=== PATIENT | female | born 1945 | race Caucasian/White ===

== ENCOUNTER 2020-05-25 08:39 | Outpatient (REF) | payer BC, SELFPAY ==
[2020-05-25 11:18] LABS: Hematocrit 44.8 % (37-47); Hemoglobin 15.3 g/dl (12.0-16.0); Mean Corpuscular HGB Conc 34.2 g/dl (31.0-35.0); Mean Corpuscular Hemoglobin 32.6 pg (27.0-33.0); Mean Corpuscular Volume 95.3 fL (80-98); Mean Platelet Volume 10.5 fL (9.4-12.3); Platelet Count 251 X10*3/uL (160-400); Red Cell Distribution Width 11.9 % (11.0-16.0); White Blood Count 7.9 X10*3/uL (4.8-10.8)
[2020-05-25 11:25] LABS: Estimated Average Glucose 131 mg/dL; Hemoglobin A1c % 6.2 %
[2020-05-25 11:26] LABS: Glucose Urine UA NEG (NEG); Leukocyte Esterase Urine NEG (NEG); Nitrite Urine NEG (NEG); PH 5.5 (5.0-8.0); Specific Gravity - Urine 1.015 (1.005-1.025); Urine Blood NEG (NEG); Urine Ketones NEG (NEG); Urine Protein NEG (NEG-TRACE)
[2020-05-25 11:29] LABS: Appearance Urine CLEAR; Color Urine YELLOW
[2020-05-25 11:40] LABS: Cholesterol 154 mg/dL; HDL Cholesterol 61 mg/dL; LDL Cholesterol Calculated 77 mg/dl; Triglycerides 80 mg/dL
[2020-05-25 12:07] LABS: Creatinine Urine 55.06 mg/dL; Microalbum/Creatinine Ratio Ur 150.7 ug/mg cr
== END 2020-05-25 08:40 | disposition home or self-care (01) ==
LOC: HO.HMGCLDS 08:39
PROVIDERS: PCP Internal Medicine; Visit Provider Internal Medicine
DX: E11.69 Type 2 diabetes mellitus with other specified complication (principal); E78.5 Hyperlipidemia, unspecified
CPT/HCPCS: 36415; 80061; 81003; 82043; 83036; 85027

== ENCOUNTER 2020-07-13 11:02 | Emergency (ER) | payer BC, SELFPAY ==
[2020-07-13 11:22] VITALS: BP 159/43; PULSE 61; RESP 16; TEMP 36.7; O2SAT 97; BMI 23.3
--- NOTE | 2020-07-13 13:16 | ED.SKABFB ---
HPI - Skin/Abscess/Foreign Bdy General Chief complaint: Skin/Abscess/Foreign Body Stated complaint: abd pain Time Seen by Provider: 07/13/20 13:22 Source: patient Mode of arrival: ambulatory Limitations: no limitations History of Present Illness HPI narrative: Patient presents to ED for painful redness on left size of abdomen small mass. Patient states history of cellulitis/abscess on abdomen that usually treated with antibiotics. Patient states she had another episode was started for the past 4 days. Patient states no fever or chills. Patient denies any recent trauma to the abdomen. Related Data Home Medications Medication Instructions Recorded Confirmed blood sugar diagnostic #10 ea 12/12/19 05/29/20 cephalexin 500 mg capsule 500 mg PO TID 12/12/19 05/29/20 doxycycline hyclate 100 mg capsule 100 mg PO BID 12/12/19 05/29/20 ibuprofen 400 mg tablet 400 mg PO TID 12/12/19 05/29/20 sulfamethoxazole 800 1 tab PO BID 12/12/19 05/29/20 mg-trimethoprim 160 mg tablet Previous Rx's Medication Instructions Recorded simvastatin 20 mg tablet 20 mg PO BEDTIME #90 tab 06/15/20 metformin 500 mg tablet 500 mg PO BID #240 tab 07/08/20 cephalexin 500 mg PO QID 7 Days #28 tab 07/13/20 doxycycline hyclate 100 mg PO BID 10 Days #20 tab 07/13/20 Allergies Allergy/AdvReac Type Severity Reaction Status Date / Time No Known Allergies Allergy Unverified 11/28/19 14:35 [No Known Allergies*] Review of Systems Review of Systems: Yes all other systems are reviewed and are negative Constitutional: Constitutional: Reports as per HPI and Reports no additional constitutional complaints Eyes: Eyes: Reports as per HPI and Reports no additional eye complaints ENT: Reports system reviewed and no additional complaints, except as documented and Reports as per HPI Cardiovascular: Cardiovascular: Reports as per HPI and Reports no additional cardiovascular complaints Respiratory: Respiratory: Reports as per HPI and Reports no additional respiratory complaints Gastrointestinal: Gastrointestinal: Reports as per HPI and Reports no additional gastrointestinal complaints Comments: Abdominal cellulitis/abscess Genitourinary: Genitourinary: Reports no additional female genitourinary complaints and Reports as per HPI Musculoskeletal: Musculoskeletal: Reports no additional musculoskeletal complaints and Reports as per HPI Neurologic: Reports system reviewed and no additional complaints, except as documented and Reports as per HPI Psychiatric: Psychiatric: Reports no additional psychiatric complaints and Reports as per HPI [facility] Past Medical History Medical History (Updated 07/13/20 @ 13:23 by DARLIN Gallego) Hyperlipidemia Type 2 diabetes mellitus Surgical History (Updated 07/13/20 @ 11:27 by Lissett Dillard) History of bilateral hip replacements History of left knee replacement Family History Family History (Updated 05/29/20 @ 13:18 by Nieves Napier [facility]) Father CVD (cardiovascular disease) Mother CVD (cardiovascular disease) Social History Social History Advance Directives: No Advance Directives Information Provided: No Physical Exam Vital Signs: Vital Signs: Last Vital Signs Temp 98.1 F 07/13/20 11:22 Pulse 61 07/13/20 11:22 Resp 16 07/13/20 11:22 BP 159/43 H 07/13/20 11:22 Pulse Ox 97 07/13/20 11:22 Body Mass Index 23.3 Const: General: cooperative, healthy appearing, comfortable, no acute distress, well developed, alert, awake and Physically active Orientation/consciousness: patient oriented x3 HENMT: Head: Yes normal to inspection, Yes No palpable skull fracture present, Yes normocephalic, Yes atraumatic and No abrasion Eyes: General: appearance normal, both eyes and all related structures Neck: Neck: Yes normal visual inspection, Yes full ROM, Yes no lymphadenopathy, Yes no meningeal signs, Yes trachea midline, Yes supple and No tender Chest: Chest palpation & inspection: normal inspection of the chest and normal palpation of entire chest wall Resp: Effort & Inspection: normal respiratory effort and able to speak in complete sentences Auscultation: clear to auscultation bilaterally Cardio: Jugular venous distension: no JVD Heart sounds: S1 normal heart sound present and S2 normal heart sound present GI: Other: Small area of redness that is warm and tender left side of abdomen that is negative for fluctuance with small opening that has slight yellow drainage. Very superficial. Inspection: Yes normal to inspection Palpation (GI): Tenderness to palpation present (GI) (Small area of redness that is warm and tender to palpation. ), Guarding due to palpation present (GI) and Rigid due to palpation : General: No CVA tenderness and Yes no CVA tenderness Back/Spine/Pelvis: Back: no CVA tenderness, No CVA tenderness and No back tenderness Skin: Other: Abdominal cellulitis/early abscess Neuro: General: patient oriented x3, no meningeal signs and CN's II-XI intact bilaterally Cranial nerves: Yes CN's II-XII intact bilaterally Extrem: General: Yes normal to inspection and Yes full ROM Psych: Appearance: grossly normal, well kempt and not disheveled Course Course Course Narrative: History and physical exam indicate cellulitis versus early abscess. Very superficial not concerned for deep abscess. mild Drainage is yellow. Drainage is not brown, stool color, or foul odor to indicate fistula/bowel content. Reevaluation(s) Reevaluation #1: Bedside ultrasound of area of redness negative for any pus collection. Will treat with Keflex and doxycycline antibiotics. Area of redness circled patient told to inform return to ED immediately if redness spreads beyond marker. Patient recommended on warm compress 4 times a day on area of redness for 15 minutes. Patient will follow-up with her PCP. MDM - Skin/Abscess/Foreign Bdy MDM Narrative Medical decision making narrative: Cellulitis/early abscess Discharge Plan Discharge Clinical Impression: Cellulitis Patient Disposition: Home, Self-Care Instructions: Cellulitis (ED), Abscess (ED) Additional Instructions: Return to the ED immediately increased redness, worsening pain, fever, chills, profuse discharge, weakness, dizziness, or any other concerning symptoms. If redness spreads beyond marker come to the ED immediately. Recommend warm compress 4 times a day for 15 minutes on area of redness. Return to the ED in 3-4 days for re-evaluation. Prescriptions: New cephalexin 500 mg tablet 500 mg PO QID 7 Days Qty: 28 RF: 0 doxycycline hyclate 100 mg tablet 100 mg PO BID 10 Days Qty: 20 RF: 0 No Action simvastatin 20 mg tablet 20 mg PO BEDTIME Qty: 90 RF: 3 metformin 500 mg tablet 500 mg PO BID Qty: 240 RF: 0 cephalexin 500 mg capsule 500 mg PO TID RF: 0 doxycycline hyclate 100 mg capsule 100 mg PO BID RF: 0 (DME) OneTouch Ultra Blue Test Strip Strip See Rx Instructions ea Not Applicable DAILY Qty: 10 RF: 0 ibuprofen 400 mg tablet 400 mg PO TID RF: 0 sulfamethoxazole-trimethoprim 800-160 mg tablet 1 tab PO BID RF: 0 Referrals: Jada Velasco MD [Primary Care Provider] - 2 days (Abdominal cellulitis/early abscess. No incision and drainage indicated. Discharged with Keflex and doxycycline) Interventions: ED Discharge Assessment Last Done: 07/13/20 13:44 Discharge Date/Time: 07/13/20 13:46 Print Language: [place] Citizen
== END 2020-07-13 13:46 | disposition home or self-care (01) ==
PROVIDERS: Emergency Provider Emergency Medicine; PCP Internal Medicine
DX: L03.311 Cellulitis of abdominal wall (principal); R10.9 Unspecified abdominal pain; E11.9 Type 2 diabetes mellitus without complications; E78.5 Hyperlipidemia, unspecified
CPT/HCPCS: 99283

== ENCOUNTER 2020-12-07 08:04 | Outpatient (REF) | payer BC, SELFPAY ==
[2020-12-07 11:30] LABS: Hematocrit 45.5 % (37-47); Hemoglobin 15.3 g/dl (12.0-16.0); Mean Corpuscular HGB Conc 33.6 g/dl (31.0-35.0); Mean Corpuscular Hemoglobin 32.8 pg (27.0-33.0); Mean Corpuscular Volume 97.4 fL (80-98); Mean Platelet Volume 10.7 fL (9.4-12.3); Platelet Count 276 X10*3/uL (160-400); Red Blood Count 4.67 X10*6/uL (4.20-5.50); Red Cell Distribution Width 12.4 % (11.0-16.0); White Blood Count 7.3 X10*3/uL (4.8-10.8)
[2020-12-07 11:42] LABS: Estimated Average Glucose 123 mg/dL; Hemoglobin A1C 152.2509 umol/L; Hemoglobin A1c % 5.9 %
[2020-12-07 12:03] LABS: Alanine Aminotransferase 18 U/L (0-31); Albumin Level 4.4 g/dL (3.5-5.0); Alkaline Phosphatase 56 U/L (39-117); Anion Gap 15 (12-20); Aspartate Amino Transferase 17 U/L (5-31); Bilirubin Total 0.8 mg/dL (0.0-1.0); Blood Urea Nitrogen 11 mg/dL (9-16); Calcium 9.7 mg/dL (8.4-10.2); Carbon Dioxide 25 mmol/L (22-29); Chloride 102 mmol/L (96-108); Cholesterol 157 mg/dL; Estimated Glomerular Filt Rate > 60; Glucose Fasting 144 mg/dL (60-99); HDL Cholesterol 67 mg/dL; LDL Cholesterol Calculated 78 mg/dl; Potassium 4.9 mmol/L (3.3-5.1); Sodium 137 mmol/L (135-145); Total Protein 7.1 g/dL (6.5-8.0); Triglycerides 64 mg/dL
[2020-12-07 12:06] LABS: Microalbum/Creatinine Ratio Ur 216.8 ug/mg cr
== END 2020-12-07 08:05 | disposition home or self-care (01) ==
LOC: HO.HMGCLDS 08:04
PROVIDERS: PCP Internal Medicine; Visit Provider Internal Medicine
DX: E11.9 Type 2 diabetes mellitus without complications (principal); E78.5 Hyperlipidemia, unspecified
CPT/HCPCS: 36415; 80053; 80061; 82043; 83036; 85027

== ENCOUNTER 2021-06-14 07:40 | Outpatient (REF) | payer BC, SELFPAY ==
[2021-06-14 12:37] LABS: Alanine Aminotransferase 20 U/L (0-31); Albumin Level 4.5 g/dL (3.5-5.0); Alkaline Phosphatase 66 U/L (39-117); Anion Gap 13 (12-20); Aspartate Amino Transferase 18 U/L (5-31); Bilirubin Total 0.6 mg/dL (0.0-1.0); Blood Urea Nitrogen 12 mg/dL (9-16); Calcium 10.3 mg/dL (8.4-10.2); Carbon Dioxide 28 mmol/L (22-29); Chloride 101 mmol/L (96-108); Cholesterol 187 mg/dL; Estimated Glomerular Filt Rate > 60; Glucose Fasting 156 mg/dL (60-99); HDL Cholesterol 81 mg/dL; LDL Cholesterol Calculated 92 mg/dl; Potassium 4.9 mmol/L (3.3-5.1); Sodium 137 mmol/L (135-145); Total Protein 7.5 g/dL (6.5-8.0); Triglycerides 71 mg/dL
== END 2021-06-14 07:41 | disposition home or self-care (01) ==
LOC: HO.HMGCLDS 07:40
PROVIDERS: Visit Provider Internal Medicine
DX: E11.9 Type 2 diabetes mellitus without complications (principal); E78.5 Hyperlipidemia, unspecified
CPT/HCPCS: 36415; 80053; 80061

== ENCOUNTER 2021-07-01 14:28 | Outpatient (REF) | payer BC, SELFPAY ==
--- NOTE | ~2021-07-01 | US_ITS ---
EXAMINATION: US PELVIS LIMITED (BLADDER) CLINICAL INFORMATION: Retention of urine, unspecified. COMPARISON: None TECHNIQUE: Real-time imaging of the bladder. FINDINGS: BLADDER: Well distended and normal. Bilateral ureteral jets are demonstrated. Prevoid bladder volume is 190 mL. There is no bladder wall thickening. Postvoid bladder volume is 179 mL. Patient is unable to void completely. US/US bladder IMPRESSION: Significant postvoid residual bladder volume. Normal bilateral ureteral jets. No bladder wall thickening.
== END 2021-07-01 14:29 | disposition home or self-care (01) ==
LOC: HO.HMGCX 14:28
PROVIDERS: Visit Provider Internal Medicine
DX: R33.9 Retention of urine, unspecified (principal)
CPT/HCPCS: 76857

== ENCOUNTER 2021-11-08 07:55 | Outpatient (REF) | payer BC, SELFPAY ==
[2021-11-08 11:26] LABS: Appearance Urine Clear; Color Urine Yellow; Glucose Urine UA Negative (Negative); Leukocyte Esterase Urine Negative (Negative); Nitrite Urine Negative (Negative); Urine Blood Negative (Negative); Urine Ketones Negative (Negative); Urine Protein Negative (Neg-Trace)
[2021-11-08 12:08] LABS: Alanine Aminotransferase 12 U/L (0-31); Albumin Level 4.4 g/dL (3.5-5.0); Alkaline Phosphatase 73 U/L (39-117); Anion Gap 16 (12-20); Aspartate Amino Transferase 16 U/L (5-31); Bilirubin Total 0.7 mg/dL (0.0-1.0); Blood Urea Nitrogen 18 mg/dL (9-16); Calcium 9.9 mg/dL (8.4-10.2); Carbon Dioxide 27 mmol/L (22-29); Chloride 101 mmol/L (96-108); Cholesterol 173 mg/dL; Estimated Glomerular Filt Rate > 60; Glucose Fasting 145 mg/dL (60-99); HDL Cholesterol 71 mg/dL; LDL Cholesterol Calculated 90 mg/dl; Potassium 5.2 mmol/L (3.3-5.1); Sodium 139 mmol/L (135-145); Total Protein 7.3 g/dL (6.5-8.0); Triglycerides 64 mg/dL
[2021-11-08 12:09] LABS: Creatinine Urine 29.13 mg/dL; Microalbum/Creatinine Ratio Ur 181.9 ug/mg cr
[2021-11-08 12:16] LABS: TSH reflex Free T4 1.52 uIU/mL (0.32-4.0); TSH reflex Free T4 (Prenatal) 1.52 uIU/mL (0.32-4.0)
[2021-11-08 12:24] LABS: Estimated Average Glucose 126 mg/dL
== END 2021-11-08 07:56 | disposition home or self-care (01) ==
LOC: HO.HMGCLDS 07:55
PROVIDERS: PCP Internal Medicine; Visit Provider Internal Medicine
DX: E78.5 Hyperlipidemia, unspecified (principal); R33.9 Retention of urine, unspecified; E11.9 Type 2 diabetes mellitus without complications
CPT/HCPCS: 36415; 80053; 80061; 81003; 82043; 83036; 84443

== ENCOUNTER 2021-11-12 13:04 | Outpatient (REF) | payer BC, SELFPAY ==
--- NOTE | ~2021-11-12 | US_ITS ---
EXAMINATION: US PELVIS LIMITED (BLADDER) CLINICAL INFORMATION: Urinary retention. COMPARISON: None TECHNIQUE: Real-time imaging of the bladder. FINDINGS: BLADDER: Only moderately distended and normal. Bilateral ureteral jets are demonstrated. Prevoid bladder volume is 184 mL. Postvoid bladder volume is 87 mL. US/US bladder IMPRESSION: Moderate post void residual. Bladder wall slightly thickened. No discrete calcifications or masses..
== END 2021-11-12 13:05 | disposition home or self-care (01) ==
LOC: HO.US 13:04
PROVIDERS: PCP Internal Medicine; Visit Provider Internal Medicine
DX: R33.9 Retention of urine, unspecified (principal)
CPT/HCPCS: 76857

== ENCOUNTER 2022-01-24 12:32 | Outpatient (REF) | payer BC, SELFPAY | END 2022-01-24 12:33 | disposition home or self-care (01) | LOC: HO.SH 12:32 | PROVIDERS: Visit Provider Internal Medicine | DX: Z01.118 Encounter for examination of ears and hearing with other abnormal findings (principal); H90.3 Sensorineural hearing loss, bilateral | CPT/HCPCS: 92557 ==

== ENCOUNTER 2022-02-14 14:26 | Outpatient (REF) | payer BC, SELFPAY ==
--- NOTE | 2022-02-14 16:09 | MHC.AU.MED ---
Medical Clearance for Hearing Instrumentation Date: 02/14/22 Patient Name: Kathe Jaramillo Date of : 1945 Primary Care Provider: Jada Velasco MD We have seen your patient on 01/24/22 and have determined that they are a candidate for amplification (See accompanying report). Specifically, they would benefit from: Hearing aid use in both ears There is a statute that addresses Medical Evaluation Requirements prior to fitting a patient with a hearing aid. According to [place] statute 265 CMR:6.03(1), (a) General. Except as provided in 265 CMR 6.03(1)(b), a senior network engineer shall not sell a hearing aid unless the prospective user has presented to the senior network engineer a written statement signed by a licensed physician that states that the patient's hearing loss has been medically evaluated and the patient may be considered a candidate for a hearing aid. The medical evaluation must have taken place within the preceding six months. Please note: Due to the [place] Statute referenced above, we cannot accept a signature other than that of a licensed physician. BEREAVEMENT COORDINATOR and PA signatures cannot be accepted. I am in agreement with the above recommendation. There is no medical contraindication for hearing instrumentation. Physician Signature Date Physician Name (Printed)
--- NOTE | 2022-02-14 16:40 | MHC.AU.HA1 ---
Hearing Aid Evaluation Date of Visit: 02/14/22 Historical Information: Description of Hearing: Within normal sloping to moderately-severe sensorineural hearing loss, bilaterally. Summary: Kathe reported that she is ready to pursue amplification. She is noticing significant difficulty hearing the television. When she is with a group of people, she is missing out on the conversation because she cannot understand what is being said. She continually needs to ask for repetition and it is beginning to affect her overall quality of life. Hearing Aid Prescription: Based on the individual?s shared listening needs, communication environments, dexterity, desire for connectivity, and personal preferences, the following prescription for amplification has been made: Right ear: Make, Model, Color: Oticon More 3 miniRITE-R Color: Silver [place] Battery Size: Rechargeable Employment Training Specialist/Slim Tube: 2/85 Type of Earmold/Dome/CShell/SlimTip: 6mm double hamilton dome Left ear: Left ear prescription to be same as Right Hearing Aid above: Make, Model, Color: Oticon More 3 miniRITE-R Color: Silver [place] Battery Size: Rechargeable Employment Training Specialist/Slim Tube: 2/85 Type of Earmold/Dome/CShell/SlimTip: 6mm double hamilton dome Plan of Care: Patient wishes to purchase hearing aids as prescribed Action Taken/Action Needed: Medical Clearance to be requested from PCP/ENT. Hearing Instrument Fitting to be scheduled when materials arrive Primary Diagnosis: H90.3 Bilateral Sensorineural Hearing Loss Signature: Provider: Dimitris Sigala, [facility]
== END 2022-02-14 14:27 | disposition home or self-care (01) ==
LOC: HO.HAP 14:26
PROVIDERS: Visit Provider Internal Medicine
DX: Z46.1 Encounter for fitting and adjustment of hearing aid (principal); H90.3 Sensorineural hearing loss, bilateral
CPT/HCPCS: 92590

== ENCOUNTER → 2022-02-21 10:00 | Outpatient (BNVA) | payer BC, SELFPAY | PROVIDERS: PCP Internal Medicine; Visit Provider Orthopaedic Surgery | DX: M65.342 Trigger finger, left ring finger (principal) | CPT/HCPCS: 20550; J1100 ==

== ENCOUNTER → 2022-03-23 13:30 | Outpatient (BNVA) | payer BC, SELFPAY | PROVIDERS: PCP Internal Medicine; Visit Provider Orthopaedic Surgery | DX: M65.342 Trigger finger, left ring finger (principal) | CPT/HCPCS: 99212 ==

== ENCOUNTER 2022-03-28 14:24 | Outpatient (REF) | payer SELFPAY | END 2022-03-28 14:25 | disposition home or self-care (01) | LOC: HO.HAP 14:24 | PROVIDERS: Visit Provider Internal Medicine | DX: Z46.1 Encounter for fitting and adjustment of hearing aid (principal); H90.3 Sensorineural hearing loss, bilateral | CPT/HCPCS: V5261; V5299 ==

== ENCOUNTER 2022-04-12 12:25 | Outpatient (REF) | payer SELFPAY | END 2022-04-12 12:26 | disposition home or self-care (01) | LOC: HO.HAP 12:25 | PROVIDERS: Visit Provider Internal Medicine | DX: Z13.89 Encounter for screening for other disorder (principal) ==

== ENCOUNTER 2022-04-21 08:56 | Day surgery (SDC) | payer BC, SELFPAY ==
[2022-04-21 09:24] VITALS: BMI 22.6
--- NOTE | 2022-04-21 10:23 | MHC.SHP ---
Pre-Procedural Eval Section A Date of Service: 04/21/22 The patient is an INPATIENT: No Changes since office visit: No Cold of Flu in the past 2 weeks, No New Medical Problems, No Changes in Medication and No Patient answered all questions The History & Physical has been completed within 30 days and I have reviewed it.: Yes Section B Chief Complaint: Trigger finger, left ring finger Allergies: Allergies Allergy/AdvReac Type Severity Reaction Status Date / Time No Known Allergies Allergy Verified 03/23/22 13:52 [No Known Allergies*] Plan I have reviewed the history and physical and performed a pertinent physical examination on my patient. No changes have occurred unless specified. Time Spent With Patient Time: Total time managing care of this patient today ____ minutes.
--- NOTE | 2022-04-21 10:23 | W.PM.OPN ---
Operative Note Operative Note Date of Service: 04/21/22 Narrative: Operative Note Preop diagnosis: 1. Left ring finger Trigger finger Postop diagnosis: 1. Left ring finger Trigger finger Procedure: 1. Left ring finger A1 jose m release Surgeon: Marleen Kim MD Anesthesia: local block using 1% lidocaine with epinephrine Findings: No locking or catching after A1 jose m release EBL: Less than 5 mL Tourniquet time: None Specimens: None Complications: None Disposition: Brought to recovery room in stable condition Plan: Follow-up for 10-14 days for wound check and suture removal Indications: The patient is 76 years old, with a left ring finger trigger finger that has been unresponsive to nonoperative management. The risks and benefits of operative treatment including but not limited to risk of damage to blood vessels, nerves, tendons, infection, persistent pain, persistent symptoms, recurrence or possible need for additional surgery were discussed with the patient and the patient wishes to proceed with surgery. Procedure: Once consent was obtained a local block was performed in the preop area using a combination of 1% lidocaine with epinephrine. The patient was then brought back to the operating suite and placed on the operative table in supine position. The left upper extremity was prepped and draped in a standard surgical fashion. Once assured that we had a good block, a 1.5 cm oblique incision was made centered over the A1 jose m of the left ring finger . The incision was made through the skin to the subcutaneous tissues using a #15 blade. Careful dissection was made down to the level of the A1 jose m using tenotomy scissors, with care being taken to protect the nearby neurovascular structures. A longitudinal incision was made in the A1 jose m 1st using a #15 blade, then using tenotomy scissors under direct visualization. The A1 jose m was noted to be thickened. Following our A1 jose m release, we no longer saw any locking or catching of the digit with flexion and extension. Once satisfied with our A1 jose m release the wound was copiously irrigated with normal saline and hemostasis was obtained with a brief period of local pressure. The skin edges were reapproximated with some 5.0 nylon suture material and a sterile dressing was applied. The patient appears to have tolerated the procedure well and with no complications. All digits were well vascularized at the conclusion of the case.
[2022-04-21 11:24] VITALS: BP 165/54; PULSE 53; RESP 18; O2SAT 94
== END 2022-04-21 11:27 | disposition home or self-care (01) ==
PROVIDERS: PCP Internal Medicine; Visit Provider Orthopaedic Surgery
PROC: (CPT 26055; principal; 2022-04-21 11:00)
DX: M65.342 Trigger finger, left ring finger (principal); E11.9 Type 2 diabetes mellitus without complications; E78.5 Hyperlipidemia, unspecified; Z79.84 Long term (current) use of oral hypoglycemic drugs; Z79.899 Other long term (current) drug therapy; F17.210 Nicotine dependence, cigarettes, uncomplicated
CPT/HCPCS: 26055; J0171

== ENCOUNTER 2022-04-29 12:24 | Outpatient (REF) | payer BC, SELFPAY | END 2022-04-29 12:25 | disposition home or self-care (01) | LOC: HO.HAP 12:24 | PROVIDERS: Visit Provider Internal Medicine | DX: Z13.89 Encounter for screening for other disorder (principal) ==

== ENCOUNTER → 2022-05-03 13:23 | Outpatient (BNVA) | payer BC, SELFPAY | PROVIDERS: PCP Internal Medicine; Visit Provider Orthopaedic Surgery | DX: Z13.89 Encounter for screening for other disorder (principal) ==

== ENCOUNTER 2022-05-09 12:53 | Outpatient (REF) | payer SELFPAY | END 2022-05-09 12:54 | disposition home or self-care (01) | LOC: HO.HAP 12:53 | PROVIDERS: Visit Provider Internal Medicine | DX: Z13.89 Encounter for screening for other disorder (principal) ==

== ENCOUNTER 2022-05-16 12:52 | Outpatient (REF) | payer SELFPAY | END 2022-05-16 12:53 | disposition home or self-care (01) | LOC: HO.HAP 12:52 | PROVIDERS: Visit Provider Internal Medicine | DX: Z13.89 Encounter for screening for other disorder (principal) ==

== ENCOUNTER 2022-05-17 07:56 | Outpatient (REF) | payer BC, SELFPAY ==
[2022-05-17 11:31] LABS: MANUAL DIFF FLAG NO
[2022-05-17 11:41] LABS: Basophils Absolute Auto 0.1 X10*3/uL (0.0-0.2); Eosinophils Absolute Auto 0.3 X10*3/uL (0.0-0.4); Eosinophils Percent Auto 4.1 % (0-4); Hematocrit 44.9 % (37.0-47.0); Hemoglobin 15.2 g/dl (12.0-16.0); Imm Gran Abs Auto 0.02 X10*3/uL (0.00-0.03); Imm Gran Pct Auto 0.2 % (0.0-0.4); Lymphocytes Absolute Auto 3.6 X10*3/uL (1.2-4.9); Mean Corpuscular HGB Conc 33.9 g/dl (31.0-35.0); Mean Corpuscular Hemoglobin 32.6 pg (27.0-33.0); Mean Corpuscular Volume 96.4 fL (80.0-98.0); Mean Platelet Volume 10.2 fL (9.4-12.3); Monocytes Absolute Auto 0.5 X10*3/uL (0.1-1.2); Monocytes Percent Auto 6.3 % (2-11); Neutrophils Absolute Auto 3.8 x10*3/uL (2.0-8.3); Neutrophils Percent Auto 45.4 % (45-73); Platelet Count 281 X10*3/uL (160-400); Red Blood Count 4.66 X10*6/uL (4.20-5.50); Red Cell Distribution Width 12.1 % (11.0-16.0); White Blood Count 8.3 X10*3/uL (4.8-10.8)
[2022-05-17 12:01] LABS: Alanine Aminotransferase 17 U/L (0-31); Albumin Level 4.3 g/dL (3.5-5.0); Alkaline Phosphatase 69 U/L (39-117); Anion Gap 13 (12-20); Aspartate Amino Transferase 18 U/L (5-31); Bilirubin Total 0.5 mg/dL (0.0-1.0); Blood Urea Nitrogen 12 mg/dL (9-16); Calcium 9.3 mg/dL (8.4-10.2); Carbon Dioxide 26 mmol/L (22-29); Chloride 102 mmol/L (96-108); Cholesterol 166 mg/dL; Estimated Glomerular Filt Rate > 60; Glucose Fasting 138 mg/dL (60-99); HDL Cholesterol 64 mg/dL; LDL Cholesterol Calculated 88 mg/dl; Potassium 4.2 mmol/L (3.3-5.1); Sodium 137 mmol/L (135-145); Total Protein 6.8 g/dL (6.5-8.0); Triglycerides 71 mg/dL
[2022-05-17 12:07] LABS: Estimated Average Glucose 143 mg/dL; Hemoglobin A1c % 6.6 %
[2022-05-17 13:33] LABS: Creatinine Urine 48.15 mg/dL; Microalbum/Creatinine Ratio Ur 176.5 ug/mg cr
== END 2022-05-17 07:57 | disposition home or self-care (01) ==
LOC: HO.HMGCLDS 07:56
PROVIDERS: PCP Internal Medicine; Visit Provider Internal Medicine
DX: E11.9 Type 2 diabetes mellitus without complications (principal); E78.5 Hyperlipidemia, unspecified
CPT/HCPCS: 36415; 80053; 80061; 82043; 83036; 85025

== ENCOUNTER 2022-08-29 12:23 | Outpatient (REF) | payer BC, SELFPAY ==
[2022-08-29 12:49] VITALS: BMI 22.3
[2022-08-29 12:51] VITALS: BP 172/82; PULSE 53; RESP 16; TEMP 36.8; O2SAT 94
== END 2022-08-29 12:24 | disposition home or self-care (01) ==
LOC: HO.MS 12:23
PROVIDERS: PCP Internal Medicine; Visit Provider Ophthalmology
PROC: (CPT 66821; principal; 2022-08-29 14:50)
DX: H26.492 Other secondary cataract, left eye (principal)
CPT/HCPCS: 66821

== ENCOUNTER 2022-11-21 07:54 | Outpatient (REF) | payer BC, SELFPAY ==
[2022-11-21 11:19] LABS: MANUAL DIFF FLAG NO
[2022-11-21 11:52] LABS: Basophils Absolute Auto 0.1 X10*3/uL (0.0-0.2); Basophils Percent Auto 1.2 % (0-2); Eosinophils Absolute Auto 0.5 X10*3/uL (0.0-0.4); Eosinophils Percent Auto 6.3 % (0-4); Hematocrit 43.5 % (37.0-47.0); Imm Gran Abs Auto 0.02 X10*3/uL (0.00-0.03); Imm Gran Pct Auto 0.2 % (0.0-0.4); Lymphocytes Absolute Auto 2.7 X10*3/uL (1.2-4.9); Lymphocytes Percent Auto 33.1 % (20-40); Mean Corpuscular HGB Conc 34.5 g/dl (31.0-35.0); Mean Corpuscular Hemoglobin 33.7 pg (27.0-33.0); Mean Corpuscular Volume 97.8 fL (80.0-98.0); Monocytes Absolute Auto 0.5 X10*3/uL (0.1-1.2); Monocytes Percent Auto 6.1 % (2-11); Neutrophils Absolute Auto 4.3 x10*3/uL (2.0-8.3); Neutrophils Percent Auto 53.1 % (45-73); Platelet Count 282 X10*3/uL (160-400); Red Blood Count 4.45 X10*6/uL (4.20-5.50); Red Cell Distribution Width 12.8 % (11.0-16.0); White Blood Count 8.2 X10*3/uL (4.8-10.8)
[2022-11-21 12:07] LABS: Estimated Average Glucose 111 mg/dL; Hemoglobin A1C 148.3837 umol/L; Hemoglobin A1c % 5.5 % (<6.0)
[2022-11-21 12:08] LABS: Alanine Aminotransferase 10 U/L (0-31); Albumin Level 4.2 g/dL (3.5-5.0); Alkaline Phosphatase 62 U/L (39-117); Anion Gap 12 (12-20); Aspartate Amino Transferase 17 U/L (5-31); Bilirubin Total 0.5 mg/dL (0.0-1.0); Blood Urea Nitrogen 14 mg/dL (9-16); Calcium 9.8 mg/dL (8.4-10.2); Carbon Dioxide 27 mmol/L (22-29); Chloride 103 mmol/L (96-108); Cholesterol 154 mg/dL (<200); Estimated Glomerular Filt Rate > 60; Glucose Fasting 129 mg/dL (60-99); HDL Cholesterol 68 mg/dL (>40); LDL Cholesterol Calculated 75 mg/dL (<100); Potassium 4.5 mmol/L (3.3-5.1); Sodium 137 mmol/L (135-145); Total Protein 7.2 g/dL (6.5-8.0); Triglycerides 58 mg/dL (<150)
[2022-11-21 12:26] LABS: Creatinine Urine 28.14 mg/dL; Microalbum/Creatinine Ratio Ur 95.9 ug/mg cr (<30)
== END 2022-11-21 07:55 | disposition home or self-care (01) ==
LOC: HO.HMGCLDS 07:54
PROVIDERS: PCP Internal Medicine; Visit Provider Internal Medicine
DX: E11.9 Type 2 diabetes mellitus without complications (principal); E78.5 Hyperlipidemia, unspecified
CPT/HCPCS: 36415; 80053; 80061; 82043; 82570; 83036; 85025

== ENCOUNTER 2022-11-22 09:54 | Outpatient (AMB) | payer BC, SELFPAY ==
--- NOTE | 2022-11-22 09:55 | A.OFFPC_ITS ---
Vital Signs 11/22/22 09:56 Height 5 ft 6.5 in Weight 134 lb BMI 21.3 BP 114/60 Blood Pressure Location Lt brachial Position Sitting Pulse 70 Pulse Source Pulse Oximeter Pulse Oximetry (%) 99 Oxygen Delivery Method Room Air Intake Visit Reasons: 6 month follow up Intake Note: Pt is here today for 6 months follow up visit. Allergies No Known Allergies [No Known Allergies*] Allergy (Verified 11/22/22 09:57) Medication List - Last Reconciled 11/22/22 by Jada Velasco MD metformin 500 mg PO BID simvastatin 20 mg PO BEDTIME tamsulosin 0.4 mg PO QPM tolterodine ER 2 mg PO DAILY Tobacco use date assessed: 11/22/22 Dental Screening Dental Screen Date: 11/22/22 Did you have a dental visit in the last 12 months?: Yes Did you have a dental problem in the last 6 months where you did not have access to dental care?: No Was dental information given to patient?: Patient has dentist HPI 6 month follow up HPI Details Pt presents for f/u hyperlipid, DM 2, stable on meds. PFSH Medical History Hyperlipidemia Skin abscess Type 2 diabetes mellitus Urinary retention Surgical History History of bilateral hip replacements History of left knee replacement Hx of colonoscopy Family History Father CVD (cardiovascular disease) Mother CVD (cardiovascular disease) Social History Housing: House Patient Tobacco Use Status: Current everyday Tobacco user Tobacco use type: Cigarette Cigarettes Per Day: 5 e-Cigarette/Vaping Use: Former Use Date or number of years quit: couple years ago Current occupational status: retired Current occupation: right handed Current occupational exposures/hazards: No Cognitive needs: No Hearing needs: Yes Vision needs: No Questionnaire Thrive Questionnaire Date Thrive assessed: 06/16/21 AUDIT C Alcohol Use Questionnaire (AUDIT-C) 1. How often do you have a drink containing alcohol?: 4 or more times a week 2. How many drinks containing alcohol do you have on a typical day when you are drinking?: 1 or 2 3. How often do you have six or more drinks on one occasion?: Never Total Score: 4 CHAVO-7 AMB Questionnaire CHAVO-7 Date CHAVO - 7 assessed: 06/16/21 Feeling nervous, anxious, or on edge: 0 = Not at all Not being able to stop or control worryin = Not at all Worrying too much about different things: 0 = Not at all Trouble relaxin = Not at all Being so restless that it is hard to sit still: 0 = Not at all Becoming easily annoyed or irritable: 0 = Not at all Feeling afraid as if something awful might happen: 0 = Not at all Total CHAVO-7 score (0-4 normal; 5-9 mild; 10-14 moderate; 15-21 severe): 0 Source: Developed by Drs. Adams Cameron, Monica Cintron, Gerhard Hawkins and colleagues, with an educational yury from [employer]. Review of Systems Const All systems reviewed & are unremarkable except as noted in HPI and below Reports no additional complaints Eyes Reports no additional complaints ENT Reports no additional complaints Card Reports no additional complaints Resp Reports no additional complaints GI Reports no additional complaints Reports no additional complaints Musc Reports no additional complaints Physical exam (Primary Care) Vital Signs: Last Vital Signs Pulse 70 11/22/22 09:56 BP 114/60 11/22/22 09:56 Pulse Ox 99 11/22/22 09:56 Oxygen Delivery Method Room Air 11/22/22 09:56 BMI result Body Mass Index 21.3 Tobacco/Smoking Status: Tobacco use Status Tobacco use date assessed 11/22/22 11/22/22 10:00 Patient Tobacco Use Status Current everyday Tobacco 11/22/22 10:00 Tobacco use type Cigarette 11/22/22 10:00 e-Cigarette/Vaping Use Former Use 11/22/22 10:00 Thrive Assessment: Date of Thrive Assessment Date Thrive assessed 06/16/21 11/22/22 10:00 Const General: no acute distress HENMT Head: Yes normal to inspection Ears: hearing grossly normal bilaterally General nose exam: Normal external nose present Face and sinus: Yes normal facial exam Mouth: Normal oral and palatal mucosa present Throat: Yes posterior oropharynx normal Eyes General: appearance normal, both eyes and all related structures Neck Neck: Yes no lymphadenopathy and Yes supple Resp Effort & Inspection: normal respiratory effort Auscultation: clear to auscultation bilaterally Cardio Rhythm: regular rhythm Heart sounds: S1 normal heart sound present and S2 normal heart sound present GI Inspection: Yes normal to inspection Palpation (GI): Soft to palpation Percussion: Yes normal to percussion Auscultation: normal bowel sounds Assessment and Plan Assessment & Plan (1) Hyperlipidemia: Code(s): E78.5 - Hyperlipidemia, unspecified Plan: cont statin (2) Type 2 diabetes mellitus: Code(s): E11.9 - Type 2 diabetes mellitus without complications Plan: A1c is 5.5, continue ADA diet regular exercise and metformin return in 6 months with a fasting labs before (3) Urinary retention: Code(s): R33.9 - Retention of urine, unspecified Plan: Follow-up with urology Orders: Orders Comprehensive [place]. Panel Fast 6 Months E11.9 - Type 2 diabetes mellitus without complications, E78.5 - Hyperlipidemia, unspecified Lipid Panel 6 Months E11.9 - Type 2 diabetes mellitus without complications, E78.5 - Hyperlipidemia, unspecified Complete Blood Count Auto Diff 6 Months E11.9 - Type 2 diabetes mellitus without complications, E78.5 - Hyperlipidemia, unspecified Hemoglobin A1c 6 Months E11.9 - Type 2 diabetes mellitus without complications, E78.5 - Hyperlipidemia, unspecified Microalbumin, Random (w Creat) 6 Months E11.9 - Type 2 diabetes mellitus without complications, E78.5 - Hyperlipidemia, unspecified Coding Level of Care Code Est Pt Level 4 (04427) Diagnoses Hyperlipidemia E78.5 Type 2 diabetes mellitus E11.9 Urinary retention R33.9
[2022-11-22 09:56] VITALS: BP 114/60; PULSE 70; O2SAT 99; BMI 21.3
== END 2022-11-22 10:41 | disposition home or self-care (01) ==
PROVIDERS: Visit Provider Internal Medicine
DX: E78.5 Hyperlipidemia, unspecified (principal); E11.9 Type 2 diabetes mellitus without complications; R33.9 Retention of urine, unspecified
CPT/HCPCS: 99214

== ENCOUNTER 2023-05-22 07:59 | Outpatient (REF) | payer BC, SELFPAY ==
[2023-05-22 11:16] LABS: MANUAL DIFF FLAG NO
[2023-05-22 11:42] LABS: Basophils Absolute Auto 0.1 X10*3/uL (0.0-0.2); Basophils Percent Auto 1.1 % (0-2); Eosinophils Absolute Auto 0.4 X10*3/uL (0.0-0.4); Eosinophils Percent Auto 4.9 % (0-4); Hematocrit 45.3 % (37.0-47.0); Hemoglobin 15.2 g/dl (12.0-16.0); Imm Gran Abs Auto 0.02 X10*3/uL (0.00-0.03); Imm Gran Pct Auto 0.2 % (0.0-0.4); Lymphocytes Absolute Auto 3.2 X10*3/uL (1.2-4.9); Lymphocytes Percent Auto 36.2 % (20-40); Mean Corpuscular HGB Conc 33.6 g/dl (31.0-35.0); Mean Corpuscular Hemoglobin 32.2 pg (27.0-33.0); Mean Platelet Volume 9.7 fL (9.4-12.3); Monocytes Absolute Auto 0.5 X10*3/uL (0.1-1.2); Monocytes Percent Auto 5.4 % (2-11); Neutrophils Absolute Auto 4.7 x10*3/uL (2.0-8.3); Neutrophils Percent Auto 52.2 % (45-73); Platelet Count 282 X10*3/uL (160-400); Red Blood Count 4.72 X10*6/uL (4.20-5.50); Red Cell Distribution Width 13.4 % (11.0-16.0)
[2023-05-22 12:10] LABS: Alanine Aminotransferase 13 U/L (0-31); Albumin Level 4.2 g/dL (3.5-5.0); Alkaline Phosphatase 56 U/L (39-117); Anion Gap 13 (12-20); Aspartate Amino Transferase 17 U/L (5-31); Bilirubin Total 0.6 mg/dL (0.0-1.0); Blood Urea Nitrogen 15 mg/dL (9-16); Calcium 9.7 mg/dL (8.4-10.2); Carbon Dioxide 26 mmol/L (22-29); Chloride 101 mmol/L (96-108); Cholesterol 156 mg/dL (<200); Estimated Glomerular Filt Rate > 60; Glucose Fasting 123 mg/dL (60-99); HDL Cholesterol 73 mg/dL (>40); LDL Cholesterol Calculated 70 mg/dL (<100); Potassium 3.9 mmol/L (3.3-5.1); Sodium 136 mmol/L (135-145); Total Protein 7.3 g/dL (6.5-8.0); Triglycerides 66 mg/dL (<150)
[2023-05-22 12:15] LABS: Estimated Average Glucose 120 mg/dL; Hemoglobin A1C 150.5395 umol/L; Hemoglobin A1c % 5.8 % (<6.0)
[2023-05-22 12:47] LABS: Creatinine Urine 32.03 mg/dL; Microalbum/Creatinine Ratio Ur 96.7 ug/mg cr (<30)
== END 2023-05-22 08:00 | disposition home or self-care (01) ==
LOC: HO.HMGCLDS 07:59
PROVIDERS: PCP Internal Medicine; Visit Provider Internal Medicine
DX: E78.5 Hyperlipidemia, unspecified (principal); E11.9 Type 2 diabetes mellitus without complications
CPT/HCPCS: 36415; 80053; 80061; 82043; 82570; 83036; 85025

== ENCOUNTER 2023-05-24 12:57 | Outpatient (AMB) | payer BC, SELFPAY ==
--- NOTE | 2023-05-24 13:05 | A.OFFPC_ITS ---
Vital Signs 05/24/23 13:06 Height 5 ft 6.5 in Weight 132 lb BMI 21.0 BP 132/64 Blood Pressure Location Lt brachial Position Sitting Pulse 71 Pulse Source Pulse Oximeter Pulse Oximetry (%) 96 Oxygen Delivery Method Room Air Intake Visit Reasons: Annual exam Intake Note: Pt is here today for PE. Allergies No Known Allergies [No Known Allergies*] Allergy (Verified 05/24/23 13:13) Medication List - Last Reconciled 05/24/23 by Jada Velasco MD metformin 500 mg PO BID simvastatin 20 mg PO BEDTIME tamsulosin 0.4 mg PO QPM tolterodine ER 2 mg PO DAILY Tobacco use date assessed: 05/24/23 Fall risk assessment: No Falls in past year Last assessed Fall Risk: 05/24/23 Dental Screening Dental Screen Date: 05/24/23 Did you have a dental visit in the last 12 months?: Yes Did you have a dental problem in the last 6 months where you did not have access to dental care?: No Was dental information given to patient?: Patient has dentist HPI Annual exam HPI Details Patient presents for physical. Type 2 diabetes and hyperlipidemia are controlled on current medications. She complains of chronic productive cough since . She reports some yellow sputum production on and off but denies pleurisy fever chills shortness of breath or wheezing. Patient continues to smoke a half a pack a day and her cough gets worse when she is trying to quit. [facility] Medical History Urinary retention Skin abscess Type 2 diabetes mellitus Hyperlipidemia Surgical History Hx of colonoscopy History of bilateral hip replacements History of left knee replacement Family History Father CVD (cardiovascular disease) Mother CVD (cardiovascular disease) Social History Housing: House Patient Tobacco Use Status: Current everyday Tobacco user Tobacco use type: Cigarette Cigarettes Per Day: 5 e-Cigarette/Vaping Use: Former Use Date or number of years quit: couple years ago Current occupational status: retired Current occupation: right handed Current occupational exposures/hazards: No Cognitive needs: No Hearing needs: Yes Vision needs: No Questionnaire PHQ-9 Over the last 2 weeks, how often have you been bothered by any of the following problems? 1. Little interest or pleasure in doing things: not at all 2. Feeling down, depressed, or hopeless: not at all 3. Trouble falling or staying asleep, or sleeping too much: not at all 4. Feeling tired or having little energy: not at all 5. Poor appetite or overeating: not at all 6. Feeling bad about yourself - or that you are a failure or have let yourself or your family down: not at all 7. Trouble concentrating on things, such as reading the newspaper or watching television: not at all 8. Moving or speaking so slowly that other people could have noticed. Or the opposite - being so fidgety or restless that you have been moving around a lot more than usual: not at all 9. Thoughts that you would be better off or of hurting yourself in some way: not at all Total score: 0 Depression Screening Interpretation: Negative Depression Screening Done: Yes 08553 - PHQ-9 Billing: Yes Source: Developed by Drs. Adams Cameron, Monica Cintron, Gerhard Hawkins and colleagues, with an educational yury from [employer]. Thrive Questionnaire Date Thrive assessed: 05/24/23 I am a: Patient What is your living situation today?: I have a steady place to live Within the past 12 months, did the food you bought not last and you didn't have the money to get more?: Never true Within the past 12 months, did you worry whether your food would run out before you got money to buy more?: Never true Do you have trouble paying for medicines?: No Do you have trouble getting transportation to medical appointments?: No Do you have trouble paying your heating and electricity bill?: No Do you have trouble taking care of your child, family member or friend?: No Do you have trouble with day-to-day activities such as bathing, preparing meals, shopping, managing finances, etc.?: No Are you currently unemployed and looking for a job?: No Are you interested in more education?: No Please select the resources that you would like help with: None THRIVE Score: 0 AUDIT C Alcohol Use Questionnaire (AUDIT-C) 1. How often do you have a drink containing alcohol?: 4 or more times a week 2. How many drinks containing alcohol do you have on a typical day when you are drinking?: 1 or 2 3. How often do you have six or more drinks on one occasion?: Never Total Score: 4 CHAVO-7 AMB Questionnaire CHAVO-7 Date CHAVO - 7 assessed: 05/24/23 Feeling nervous, anxious, or on edge: 0 = Not at all Not being able to stop or control worryin = Not at all Worrying too much about different things: 0 = Not at all Trouble relaxin = Not at all Being so restless that it is hard to sit still: 0 = Not at all Becoming easily annoyed or irritable: 0 = Not at all Feeling afraid as if something awful might happen: 0 = Not at all Total CHAVO-7 score (0-4 normal; 5-9 mild; 10-14 moderate; 15-21 severe): 0 Source: Developed by Drs. Adams Cameron, Monica Cintron, Gerhard Hawkins and colleagues, with an educational yury from [employer]. Review of Systems Const All systems reviewed & are unremarkable except as noted in HPI and below Reports no additional complaints Eyes Reports no additional complaints ENT Reports no additional complaints Card Reports no additional complaints Resp Reports no additional complaints GI Reports no additional complaints Reports no additional complaints Physical exam (Primary Care) Vital Signs: Last Vital Signs Pulse 71 05/24/23 13:06 BP 132/64 05/24/23 13:06 Pulse Ox 96 05/24/23 13:06 Oxygen Delivery Method Room Air 05/24/23 13:06 BMI result Body Mass Index 21.0 Tobacco/Smoking Status: Tobacco use Status Tobacco use date assessed 05/24/23 05/24/23 13:20 Patient Tobacco Use Status Current everyday Tobacco 05/24/23 13:06 Tobacco use type Cigarette 05/24/23 13:06 e-Cigarette/Vaping Use Former Use 05/24/23 13:06 PHQ-9: PHQ-9 Score PHQ-9: Total score 0 05/24/23 15:29 Depression Screening Interpretation: Negative Thrive Assessment: Date of Thrive Assessment Date Thrive assessed 05/24/23 05/24/23 13:20 Const General: no acute distress HENMT Head: Yes normal to inspection Ears: hearing grossly normal bilaterally Mouth: Normal oral and palatal mucosa present Eyes General: appearance normal, both eyes and all related structures Neck Neck: Yes supple Resp Effort & Inspection: normal respiratory effort Auscultation: rhonchi and wheezes Cardio Rhythm: regular rhythm Heart sounds: S1 normal heart sound present and S2 normal heart sound present GI Inspection: Yes normal to inspection Palpation (GI): Soft to palpation Percussion: Yes normal to percussion Auscultation: normal bowel sounds Extrem General: Yes no clubbing, cyanosis or edema Assessment and Plan Assessment & Plan (1) Hyperlipidemia: Code(s): E78.5 - Hyperlipidemia, unspecified Plan: cont statin (2) Type 2 diabetes mellitus: Code(s): E11.9 - Type 2 diabetes mellitus without complications Plan: A1c is 5.8, continue ADA diet metformin and regular exercise (3) Smoker: Comment: 1/2 PPD x 50 yrs, declined referral to lung cancer screening program Code(s): F17.200 - Nicotine dependence, unspecified, uncomplicated (4) COPD (chronic obstructive pulmonary disease): Code(s): J44.9 - Chronic obstructive pulmonary disease, unspecified Plan: PATIENT WAS ADVISED TO STOP SMOKING. Anoro is started. patient was advised to have a chest x-ray but she declined. Patient was advised to follow-up in 2 months but she declined. She will follow-up in 6 months with a fasting labs before Orders: Orders Complete Blood Count Auto Diff 6 Months E11.9 - Type 2 diabetes mellitus without complications, E78.5 - Hyperlipidemia, unspecified Lipid Panel 6 Months E11.9 - Type 2 diabetes mellitus without complications, E78.5 - Hyperlipidemia, unspecified Comprehensive [place]. Panel Fast 6 Months E11.9 - Type 2 diabetes mellitus without complications, E78.5 - Hyperlipidemia, unspecified Hemoglobin A1c 6 Months E11.9 - Type 2 diabetes mellitus without complications, E78.5 - Hyperlipidemia, unspecified Medications: New Anoro Ellipta 62.5-25 mcg/actuation (umeclidinium-vilanterol) 1 inh inhalation DAILY 60 ea 4RF NS Coding Level of Care Code Est Pt Prev Care >65y(09915) Diagnoses Hyperlipidemia E78.5 Type 2 diabetes mellitus E11.9 Smoker F17.200 COPD (chronic obstructive pulmonary disease) J44.9
[2023-05-24 13:06] VITALS: BP 132/64; PULSE 71; O2SAT 96; BMI 21.0
== END 2023-05-24 14:05 | disposition home or self-care (01) ==
PROVIDERS: PCP Internal Medicine; Visit Provider Internal Medicine
DX: Z00.00 Encounter for general adult medical examination without abnormal findings (principal); E11.69 Type 2 diabetes mellitus with other specified complication; J44.9 Chronic obstructive pulmonary disease, unspecified; E78.5 Hyperlipidemia, unspecified; F17.200 Nicotine dependence, unspecified, uncomplicated
CPT/HCPCS: 99397

== ENCOUNTER 2023-11-10 07:53 | Outpatient (REF) | payer BC, SELFPAY ==
[2023-11-10 10:09] LABS: Basophils Absolute Auto 0.1 X10*3/uL (0.0-0.2); Eosinophils Absolute Auto 0.5 X10*3/uL (0.0-0.4); Eosinophils Percent Auto 4.4 % (0-4); Hematocrit 42.9 % (37.0-47.0); Hemoglobin 14.8 g/dl (12.0-16.0); Imm Gran Abs Auto 0.05 X10*3/uL (0.00-0.03); Imm Gran Pct Auto 0.5 % (0.0-0.4); Lymphocytes Absolute Auto 3.1 X10*3/uL (1.2-4.9); Lymphocytes Percent Auto 30.6 % (20-40); MANUAL DIFF FLAG SCAN; Mean Corpuscular HGB Conc 34.5 g/dl (31.0-35.0); Mean Corpuscular Hemoglobin 33.3 pg (27.0-33.0); Mean Corpuscular Volume 96.6 fL (80.0-98.0); Mean Platelet Volume 9.5 fL (9.4-12.3); Monocytes Absolute Auto 0.6 X10*3/uL (0.1-1.2); Monocytes Percent Auto 5.8 % (2-11); Neutrophils Absolute Auto 5.9 x10*3/uL (2.0-8.3); Neutrophils Percent Auto 57.7 % (45-73); Platelet Count 357 X10*3/uL (160-400); Red Blood Count 4.44 X10*6/uL (4.20-5.50); Red Cell Distribution Width 11.9 % (11.0-16.0); SCAN SMEAR FLAG 1; White Blood Count 10.2 X10*3/uL (4.8-10.8)
[2023-11-10 10:28] LABS: Alanine Aminotransferase 14 U/L (0-31); Albumin Level 4.1 g/dL (3.5-5.0); Alkaline Phosphatase 68 U/L (39-117); Anion Gap 12 (12-20); Aspartate Amino Transferase 18 U/L (5-31); Bilirubin Total 0.3 mg/dL (0.0-1.0); Blood Urea Nitrogen 9 mg/dL (9-16); Calcium 10.4 mg/dL (8.4-10.2); Carbon Dioxide 27 mmol/L (22-29); Chloride 101 mmol/L (96-108); Cholesterol 141 mg/dL (<200); Estimated Glomerular Filt Rate > 60; Glucose Fasting 136 mg/dL (60-99); HDL Cholesterol 52 mg/dL (>40); LDL Cholesterol Calculated 76 mg/dL (<100); Potassium 4.5 mmol/L (3.3-5.1); Sodium 135 mmol/L (135-145); Total Protein 7.5 g/dL (6.5-8.0); Triglycerides 67 mg/dL (<150)
[2023-11-10 10:30] LABS: SLIDE REVIEW VERIFIED
[2023-11-10 12:26] LABS: Estimated Average Glucose 120 mg/dL; Hemoglobin A1c % 5.8 % (<6.0)
== END 2023-11-10 07:54 | disposition home or self-care (01) ==
LOC: HO.HMGCLDS 07:53
PROVIDERS: PCP Internal Medicine; Visit Provider Internal Medicine
DX: E78.5 Hyperlipidemia, unspecified (principal); E11.9 Type 2 diabetes mellitus without complications
CPT/HCPCS: 36415; 80053; 80061; 83036; 85025

== ENCOUNTER 2023-11-14 11:14 | Outpatient (AMB) | payer BC, SELFPAY ==
[2023-11-14 11:21] VITALS: BP 126/64; PULSE 61; O2SAT 96; BMI 21.3
--- NOTE | 2023-11-14 11:21 | A.OFFPC_ITS ---
Vital Signs 11/14/23 11:21 Height 5 ft 6.5 in Weight 134 lb BMI 21.3 BP 126/64 Blood Pressure Location Rt brachial Position Sitting Pulse 61 Pulse Source Pulse Oximeter Pulse Oximetry (%) 96 Oxygen Delivery Method Room Air Intake Visit Reasons: 6M F/U Intake Note: Pt is here today for 6 months follow up visit. Allergies No Known Allergies [No Known Allergies*] Allergy (Verified 11/14/23 11:28) Medication List - Last Reconciled 11/14/23 by Jada Velasco MD Anoro Ellipta 62.5-25 mcg/actuation (umeclidinium-vilanterol) 1 inh inhalation DAILY NS metformin 500 mg PO BID nicotine 1 patch transdermal DAILY simvastatin 20 mg PO BEDTIME tamsulosin 0.4 mg PO QPM tolterodine ER 2 mg PO DAILY Tobacco use date assessed: 11/14/23 Fall risk assessment: No Falls in past year Last assessed Fall Risk: 11/14/23 Dental Screening Dental Screen Date: 05/24/23 HPI 6M F/U HPI Details Patient presents for the follow-up of type 2 diabetes hyperlipidemia and COPD stable on current medications. [facility] Medical History Urinary retention Skin abscess Type 2 diabetes mellitus Hyperlipidemia Surgical History Hx of colonoscopy History of bilateral hip replacements History of left knee replacement Family History Father CVD (cardiovascular disease) Mother CVD (cardiovascular disease) Social History Housing: House Patient Tobacco Use Status: Current everyday Tobacco user Tobacco use type: Cigarette Cigarettes Per Day: 5 e-Cigarette/Vaping Use: Former Use Date or number of years quit: couple years ago service: No Current occupational status: retired Current occupation: right handed Current occupational exposures/hazards: No Cognitive needs: No Hearing needs: Yes Vision needs: No Questionnaire Thrive Questionnaire Date Thrive assessed: 05/24/23 CHAVO-7 AMB Questionnaire CHAVO-7 Date CHAVO - 7 assessed: 05/24/23 Source: Developed by Drs. Adams Cameron, Monica CintronGerhard and colleagues, with an educational yury from [employer]. Review of Systems Const All systems reviewed & are unremarkable except as noted in HPI and below Card Reports no additional complaints Resp Reports no additional complaints GI Reports no additional complaints Reports no additional complaints Physical exam (Primary Care) Vital Signs: Last Vital Signs Pulse 61 11/14/23 11:21 BP 126/64 11/14/23 11:21 Pulse Ox 96 11/14/23 11:21 Oxygen Delivery Method Room Air 11/14/23 11:21 BMI result Body Mass Index 21.3 Tobacco/Smoking Status: Tobacco use Status Tobacco use date assessed 11/14/23 11/14/23 11:31 Patient Tobacco Use Status Current everyday Tobacco 11/14/23 11:21 Tobacco use type Cigarette 11/14/23 11:21 e-Cigarette/Vaping Use Former Use 11/14/23 11:21 Thrive Assessment: Date of Thrive Assessment Date Thrive assessed 05/24/23 11/14/23 11:21 Const General: no acute distress HENMT Face and sinus: Yes normal facial exam Neck Neck: Yes supple Resp Effort & Inspection: normal respiratory effort Auscultation: clear to auscultation bilaterally Cardio Rhythm: regular rhythm Heart sounds: S1 normal heart sound present and S2 normal heart sound present GI Inspection: Yes normal to inspection Palpation (GI): Soft to palpation Percussion: Yes normal to percussion Assessment and Plan Assessment & Plan (1) Hyperlipidemia: Code(s): E78.5 - Hyperlipidemia, unspecified Plan: cont statin (2) Type 2 diabetes mellitus: Code(s): E11.9 - Type 2 diabetes mellitus without complications Plan: A1c is 5.8, continue ADA diet metformin and regular exercise return in 6 months for physical (3) COPD (chronic obstructive pulmonary disease): Code(s): J44.9 - Chronic obstructive pulmonary disease, unspecified Plan: Continue Anoro and try nicotine patch for tobacco cravings Orders: Orders Comprehensive [place]. Panel Fast 6 Months E11.9 - Type 2 diabetes mellitus without complications, E78.5 - Hyperlipidemia, unspecified, J44.9 - Chronic obstructive pulmonary disease, unspecified Complete Blood Count Auto Diff 6 Months E11.9 - Type 2 diabetes mellitus without complications, E78.5 - Hyperlipidemia, unspecified, J44.9 - Chronic obstructive pulmonary disease, unspecified Lipid Panel 6 Months E11.9 - Type 2 diabetes mellitus without complications, E78.5 - Hyperlipidemia, unspecified, J44.9 - Chronic obstructive pulmonary disease, unspecified Hemoglobin A1c 6 Months E11.9 - Type 2 diabetes mellitus without complications, E78.5 - Hyperlipidemia, unspecified, J44.9 - Chronic obstructive pulmonary disease, unspecified Microalbumin, Random (w Creat) 6 Months E11.9 - Type 2 diabetes mellitus witho ut complications, E78.5 - Hyperlipidemia, unspecified, J44.9 - Chronic obstructive pulmonary disease, unspecified TSH reflex Free T4 6 Months E11.9 - Type 2 diabetes mellitus without complications, E78.5 - Hyperlipidemia, unspecified, J44.9 - Chronic obstructive pulmonary disease, unspecified Medications: New nicotine 1 patch transdermal DAILY 28 ea 2RF Coding Level of Care Code Est Pt Level 4 (47039) Diagnoses Hyperlipidemia E78.5 Type 2 diabetes mellitus E11.9 COPD (chronic obstructive pulmonary disease) J44.9
== END 2023-11-14 11:58 | disposition home or self-care (01) ==
PROVIDERS: PCP Internal Medicine; Visit Provider Internal Medicine
DX: E78.5 Hyperlipidemia, unspecified (principal); E11.9 Type 2 diabetes mellitus without complications; J44.9 Chronic obstructive pulmonary disease, unspecified
CPT/HCPCS: 99214

== ENCOUNTER 2024-05-27 08:05 | Outpatient (REF) | payer BC, SELFPAY ==
[2024-05-27 10:25] LABS: MANUAL DIFF FLAG NO
[2024-05-27 10:30] LABS: Basophils Absolute Auto 0.1 X10*3/uL (0.0-0.2); Basophils Percent Auto 0.7 % (0-2); Eosinophils Absolute Auto 0.3 X10*3/uL (0.0-0.4); Eosinophils Percent Auto 3.9 % (0-4); Hemoglobin 15.2 g/dl (12.0-16.0); Imm Gran Abs Auto 0.02 X10*3/uL (0.00-0.03); Imm Gran Pct Auto 0.2 % (0.0-0.4); Lymphocytes Absolute Auto 3.2 X10*3/uL (1.2-4.9); Lymphocytes Percent Auto 39.2 % (20-40); Mean Corpuscular HGB Conc 34.5 g/dl (31.0-35.0); Mean Corpuscular Hemoglobin 33.6 pg (27.0-33.0); Mean Corpuscular Volume 97.3 fL (80.0-98.0); Mean Platelet Volume 9.9 fL (9.4-12.3); Monocytes Absolute Auto 0.5 X10*3/uL (0.1-1.2); Monocytes Percent Auto 6.5 % (2-11); Neutrophils Absolute Auto 4.1 x10*3/uL (2.0-8.3); Neutrophils Percent Auto 49.5 % (45-73); Platelet Count 267 X10*3/uL (160-400); Red Blood Count 4.52 X10*6/uL (4.20-5.50); Red Cell Distribution Width 13.1 % (11.0-16.0); White Blood Count 8.2 X10*3/uL (4.8-10.8)
[2024-05-27 10:41] LABS: Estimated Average Glucose 126 mg/dL; Total Hemoglobin (HGBA1C) 3983.7485 umol/L
[2024-05-27 11:08] LABS: Creatinine Urine 35.97 mg/dL; Microalbum/Creatinine Ratio Ur 130.6 ug/mg cr (<30)
[2024-05-27 12:22] LABS: Alanine Aminotransferase 16 U/L (0-31); Albumin Level 4.1 g/dL (3.5-5.0); Alkaline Phosphatase 57 U/L (39-117); Anion Gap 13 (12-20); Aspartate Amino Transferase 18 U/L (5-31); Bilirubin Total 0.5 mg/dL (0.0-1.0); Blood Urea Nitrogen 13 mg/dL (9-16); Calcium 9.3 mg/dL (8.4-10.2); Carbon Dioxide 25 mmol/L (22-29); Chloride 102 mmol/L (96-108); Cholesterol 148 mg/dL (<200); Estimated Glomerular Filt Rate > 60; Glucose Fasting 123 mg/dL (60-99); HDL Cholesterol 68 mg/dL (>40); LDL Cholesterol Calculated 69 mg/dL (<100); Sodium 136 mmol/L (135-145); TSH reflex Free T4 1.57 uIU/mL (0.32-4.0); Total Protein 7.3 g/dL (6.5-8.0); Triglycerides 55 mg/dL (<150)
== END 2024-05-27 08:06 | disposition home or self-care (01) ==
LOC: HO.HMGCLDS 08:05
PROVIDERS: PCP Internal Medicine; Visit Provider Internal Medicine
DX: J44.9 Chronic obstructive pulmonary disease, unspecified (principal); E11.9 Type 2 diabetes mellitus without complications; E78.5 Hyperlipidemia, unspecified
CPT/HCPCS: 36415; 80053; 80061; 82043; 82570; 83036; 84443; 85025

== ENCOUNTER 2024-05-30 11:59 | Outpatient (AMB) | payer BC, SELFPAY ==
[2024-05-30 12:02] VITALS: BP 126/74; PULSE 60; RESP 18; TEMP 36.7; O2SAT 96; BMI 20.8
--- NOTE | 2024-05-30 12:02 | MHC.PC.OV ---
Vital Signs 05/30/24 12:02 Height 5 ft 6.5 in Weight 131 lb BMI 20.8 BP 126/74 Blood Pressure Location Lt brachial Position Sitting Respiration 18 Pulse 60 Pulse Source Pulse Oximeter Temp 98.0 F Temp Source Oral Pulse Oximetry (%) 96 Oxygen Delivery Method Room Air Intake Visit Reasons: Annual PE Intake Note: Pt is here today for PE. Allergies No Known Allergies [No Known Allergies*] Allergy (Verified 05/30/24 12:13) Medication List - Last Reconciled 05/30/24 by Jada Velasco MD Anoro Ellipta 62.5-25 mcg/actuation (umeclidinium-vilanterol) 1 inh inhalation DAILY NS metformin 500 mg PO BID nicotine 1 patch transdermal DAILY simvastatin 20 mg PO BEDTIME tamsulosin 0.4 mg PO QPM tolterodine ER 2 mg PO DAILY varenicline tartrate (Chantix Continuing Month Box) 1 mg PO BID varenicline tartrate (Chantix Starting Month Box) PO PER PKG DIR Tobacco use date assessed: 05/30/24 Fall risk assessment: No Falls in past year Last assessed Fall Risk: 05/30/24 Dental Screening Dental Screen Date: 05/30/24 Did you have a dental visit in the last 12 months?: Yes Did you have a dental problem in the last 6 months where you did not have access to dental care?: No Was dental information given to patient?: Patient has dentist HPI Annual PE HPI Details Patient presents for physical PFSH Medical History Urinary retention Skin abscess Type 2 diabetes mellitus Hyperlipidemia Surgical History Hx of colonoscopy History of bilateral hip replacements History of left knee replacement Family History Father CVD (cardiovascular disease) Mother CVD (cardiovascular disease) Social History Housing: House Patient Tobacco Use Status: Current everyday Tobacco user Tobacco use type: Cigarette Cigarettes Per Day: 5 e-Cigarette/Vaping Use: Former Use Date or number of years quit: couple years ago service: No Current occupational status: retired Current occupation: right handed Current occupational exposures/hazards: No Cognitive needs: No Hearing needs: Yes Vision needs: No Questionnaire PHQ-9 Over the last 2 weeks, how often have you been bothered by any of the following problems? 1. Little interest or pleasure in doing things: not at all 2. Feeling down, depressed, or hopeless: not at all 3. Trouble falling or staying asleep, or sleeping too much: not at all 4. Feeling tired or having little energy: not at all 5. Poor appetite or overeating: not at all 6. Feeling bad about yourself - or that you are a failure or have let yourself or your family down: not at all 7. Trouble concentrating on things, such as reading the newspaper or watching television: not at all 8. Moving or speaking so slowly that other people could have noticed. Or the opposite - being so fidgety or restless that you have been moving around a lot more than usual: not at all 9. Thoughts that you would be better off or of hurting yourself in some way: not at all Total score: 0 Depression Screening Interpretation: Negative Depression Screening Done: Yes 98232 - PHQ-9 Billing: Yes Source: Developed by Drs. Adams Cameron, Monica Cintron, Gerhard Hawkins and colleagues, with an educational yury from [employer]. Thrive Questionnaire Date Thrive assessed: 05/30/24 I am a: Patient What is your living situation today?: I have a steady place to live Within the past 12 months, did the food you bought not last and you didn't have the money to get more?: Never true Within the past 12 months, did you worry whether your food would run out before you got money to buy more?: Never true Do you have trouble paying for medicines?: No Do you have trouble getting transportation to medical appointments?: No Do you have trouble paying your heating and electricity bill?: No Do you have trouble taking care of your child, family member or friend?: No Do you have trouble with day-to-day activities such as bathing, preparing meals, shopping, managing finances, etc.?: No Are you currently unemployed and looking for a job?: No Are you interested in more education?: No Please select the resources that you would like help with: None Currently or been in a relationship where the following occur: No concerns reported THRIVE Score: 0 AUDIT C Alcohol Use Questionnaire (AUDIT-C) 1. How often do you have a drink containing alcohol?: 4 or more times a week 2. How many drinks containing alcohol do you have on a typical day when you are drinking?: 1 or 2 3. How often do you have six or more drinks on one occasion?: Never Total Score: 4 CHAVO-7 AMB Questionnaire CHAVO-7 Date CHAVO - 7 assessed: 05/30/24 Feeling nervous, anxious, or on edge: 0 = Not at all Not being able to stop or control worryin = Not at all Worrying too much about different things: 0 = Not at all Trouble relaxin = Not at all Being so restless that it is hard to sit still: 0 = Not at all Becoming easily annoyed or irritable: 0 = Not at all Feeling afraid as if something awful might happen: 0 = Not at all Total CHAVO-7 score (0-4 normal; 5-9 mild; 10-14 moderate; 15-21 severe): 0 Source: Developed by Drs. Adams Cameron, Monica Cintron, Gerhard Hawkins and colleagues, with an educational yury from [employer]. CHAVO-7 Assessment Billing CHAVO-7 Assessment Tool: CHAVO-7 Assessment 88532 Review of Systems Const All systems reviewed & are unremarkable except as noted in HPI and below Eyes Reports no additional complaints ENT Reports no additional complaints Card Reports no additional complaints Resp Reports no additional complaints GI Reports no additional complaints Reports no additional complaints Physical exam (Primary Care) Vital Signs: Last Vital Signs Temp 98.0 F 05/30/24 12:02 Pulse 60 05/30/24 12:02 Resp 18 05/30/24 12:02 BP 126/74 05/30/24 12:02 Pulse Ox 96 05/30/24 12:02 Oxygen Delivery Method Room Air 05/30/24 12:02 BMI result Body Mass Index 20.8 Tobacco/Smoking Status: Tobacco use Status Tobacco use date assessed 05/30/24 05/30/24 12:17 Patient Tobacco Use Status Current everyday Tobacco 05/30/24 12:03 Tobacco use type Cigarette 05/30/24 12:03 e-Cigarette/Vaping Use Former Use 05/30/24 12:03 PHQ-9: PHQ-9 Score PHQ-9: Total score 0 05/30/24 12:17 Depression Screening Interpretation: Negative Thrive Assessment: Date of Thrive Assessment Date Thrive assessed 05/30/24 05/30/24 12:17 Currently or been in a relationship where the following occur: No concerns reported Const General: no acute distress HENMT Head: Yes normal to inspection Ears: hearing grossly normal bilaterally Face and sinus: Yes normal facial exam Throat: Yes posterior oropharynx normal Neck Neck: Yes no lymphadenopathy and Yes supple Resp Effort & Inspection: normal respiratory effort Auscultation: wheezes and diminished lung sounds Cardio Rhythm: regular rhythm Heart sounds: S1 normal heart sound present and S2 normal heart sound present GI Inspection: Yes normal to inspection Palpation (GI): Soft to palpation Percussion: Yes normal to percussion Auscultation: normal bowel sounds Coding Level of Care Code Est Pt Prev Care >65y(60228) Diagnoses Type 2 diabetes mellitus E11.9 COPD (chronic obstructive pulmonary disease) J44.9 Smoker F17.200 Hyperlipidemia E78.5 Annual physical exam Z00.00 Additional Codes CHAVO-7 Assessment Billing - CHAVO-7 Assessment Tool: CHAVO-7 Assessment 76139 ([id number]) PHQ-9 - 88130 - PHQ-9 Billing: Yes ([id number]) Assessment & Plan Assessment & Plan (1) Type 2 diabetes mellitus: Code(s): E11.9 - Type 2 diabetes mellitus without complications Category: Medical Plan: A1c is 6.0, continue current medications ADA diet increase physical activity follow-up in 6 months with a fasting labs before (2) COPD (chronic obstructive pulmonary disease): Code(s): J44.9 - Chronic obstructive pulmonary disease, unspecified Category: Medical Plan: Change Anoro to Trelegy and tobacco quitting discussed with the patient. She will try Chantix (3) Smoker: Comment: 1/2 PPD x 50 yrs, declined referral to lung cancer screening program Code(s): F17.200 - Nicotine dependence, unspecified, uncomplicated Category: Social Hx Plan: Tobacco quitting discussed with the patient she declined lung cancer screening (4) Hyperlipidemia: Code(s): E78.5 - Hyperlipidemia, unspecified Category: Medical Plan: Continue statin (5) Annual physical exam: Code(s): Z00.00 - Encounter for general adult medical examination without abnormal findings Category: Medical Plan: Well-balanced diet regular physical activity discussed with the patient Orders: Orders Comprehensive [place]. Panel Fast 6 Months E11.9 - Type 2 diabetes mellitus without complications, J44.9 - Chronic obstructive pulmonary disease, unspecified Hemoglobin A1c 6 Months E11.9 - Type 2 diabetes mellitus without complications, J44.9 - Chronic obstructive pulmonary disease, unspecified Medications: New varenicline tartrate (Chantix Continuing Month Box) 1 mg PO BID 56 tabs 1RF varenicline tartrate (Chantix Starting Month Box) PO PER PKG DIR 53 ea 0RF Trelegy Ellipta 100-62.5-25 mcg ([id number]-euzbuadc) 1 inh inhalation DAILY 60 ea 4RF NS Refilled metformin 2 tablets in AM and 1 tablet at bedtime 500 mg PO BID 270 tabs 3RF Discontinued Anoro Ellipta 62.5-25 mcg/actuation (umeclidinium-vilanterol) Discontinued Reason: Doctor's Order 1 inh inhalation DAILY 180 ea 1RF NS
== END 2024-05-30 12:42 | disposition home or self-care (01) ==
LOC: HO.HMCC 12:00
PROVIDERS: PCP Internal Medicine; Visit Provider Internal Medicine
DX: E11.9 Type 2 diabetes mellitus without complications (principal); J44.9 Chronic obstructive pulmonary disease, unspecified; F17.200 Nicotine dependence, unspecified, uncomplicated; E78.5 Hyperlipidemia, unspecified; Z00.00 Encounter for general adult medical examination without abnormal findings

== ENCOUNTER → 2024-05-30 11:59 | Outpatient (BNVA) | payer BC, SELFPAY | PROVIDERS: PCP Internal Medicine; Visit Provider Internal Medicine | DX: Z00.00 Encounter for general adult medical examination without abnormal findings (principal); E11.9 Type 2 diabetes mellitus without complications; J44.9 Chronic obstructive pulmonary disease, unspecified; E78.5 Hyperlipidemia, unspecified; F17.210 Nicotine dependence, cigarettes, uncomplicated; Z79.899 Other long term (current) drug therapy | CPT/HCPCS: 96127 ==

== ENCOUNTER 2024-11-29 07:50 | Outpatient (REF) | payer BC, SELFPAY ==
[2024-11-29 10:55] LABS: Hemoglobin A1C 164.3755 umol/L; Total Hemoglobin (HGBA1C) 3860.1893 umol/L
[2024-11-29 11:19] LABS: Alanine Aminotransferase 17 U/L (0-31); Albumin Level 4.4 g/dL (3.5-5.0); Alkaline Phosphatase 71 U/L (39-117); Anion Gap 13 (12-20); Aspartate Amino Transferase 22 U/L (5-31); Blood Urea Nitrogen 9 mg/dL (9-16); Calcium 9.6 mg/dL (8.4-10.2); Carbon Dioxide 26 mmol/L (22-29); Chloride 102 mmol/L (96-108); Estimated Glomerular Filt Rate > 60; Potassium 4.9 mmol/L (3.3-5.1); Sodium 136 mmol/L (135-145); Total Protein 7.3 g/dL (6.5-8.0)
== END 2024-11-29 07:51 | disposition home or self-care (01) ==
LOC: HO.HMGCLDS 07:50
PROVIDERS: PCP Internal Medicine; Visit Provider Internal Medicine
DX: E11.9 Type 2 diabetes mellitus without complications (principal); J44.9 Chronic obstructive pulmonary disease, unspecified
CPT/HCPCS: 36415; 80053; 83036

== ENCOUNTER 2024-12-02 12:28 | Outpatient (AMB) | payer BC, SELFPAY ==
--- NOTE | 2024-12-02 12:50 | MHC.PC.OV ---
Vital Signs 12/02/24 13:04 Height 5 ft 6.5 in Weight 127 lb BMI 20.2 BP 136/64 Blood Pressure Location Lt brachial Position Sitting Respiration 18 Pulse 60 Pulse Source Pulse Oximeter Temp 98.0 F Temp Source Oral Pulse Oximetry (%) 97 Oxygen Delivery Method Room Air Intake Visit Reasons: 6 months f/up Intake Note: Pt is here today for 6 months follow up visit. Allergies No Known Allergies (No Known Allergies*) Allergy (Verified 12/02/24 13:06) Medication List - Last Reconciled 12/02/24 by Jada Velasco MD metformin 2 tabs in am, 1 tab in pm every day orally; nicotine 1 patch transdermal DAILY simvastatin 20 mg PO BEDTIME tamsulosin 0.4 mg PO QPM tolterodine ER 2 mg PO DAILY Trelegy Ellipta 100-62.5-25 mcg (ojxtfemlgxm-fvlquwcma-arcsttgy) 1 inh inhalation DAILY NS varenicline tartrate (Chantix Starting Month Box) PO PER PKG DIR varenicline tartrate 1 mg PO BID Tobacco use date assessed: 12/02/24 Fall risk assessment: No Falls in past year Last assessed Fall Risk: 12/02/24 Dental Screening Dental Screen Date: 05/30/24 HPI 6 months f/up HPI Details Pt presents for DM 2, COPD, hyperlipid stable on meds. [facility] Medical History (Updated 12/02/24 @ 20:43 by Jada Velasco MD) COPD (chronic obstructive pulmonary disease) Urinary retention Skin abscess Type 2 diabetes mellitus Hyperlipidemia Surgical History Hx of colonoscopy History of bilateral hip replacements History of left knee replacement Family History Father CVD (cardiovascular disease) Mother CVD (cardiovascular disease) Social History Housing: House Patient Tobacco Use Status: Current everyday Tobacco user Tobacco use type: Cigarette Cigarettes Per Day: 5 e-Cigarette/Vaping Use: Former Use Date or number of years quit: couple years ago service: No Current occupational status: retired Current occupation: right handed Current occupational exposures/hazards: No Cognitive needs: No Hearing needs: Yes Vision needs: No Questionnaire PHQ-9 Over the last 2 weeks, how often have you been bothered by any of the following problems? 1. Little interest or pleasure in doing things: not at all 2. Feeling down, depressed, or hopeless: not at all 3. Trouble falling or staying asleep, or sleeping too much: not at all 4. Feeling tired or having little energy: not at all 5. Poor appetite or overeating: not at all 6. Feeling bad about yourself - or that you are a failure or have let yourself or your family down: not at all 7. Trouble concentrating on things, such as reading the newspaper or watching television: not at all 8. Moving or speaking so slowly that other people could have noticed. Or the opposite - being so fidgety or restless that you have been moving around a lot more than usual: not at all 9. Thoughts that you would be better off or of hurting yourself in some way: not at all Total score: 0 Depression Screening Interpretation: Negative Depression Screening Done: Yes Source: Developed by Drs. Adams Cameron, Monica Cintron, Gerhard Hawkins and colleagues, with an educational yury from [employer]. Thrive Questionnaire Date Thrive assessed: 05/30/24 I am a: Patient What is your living situation today?: I have a steady place to live Within the past 12 months, did the food you bought not last and you didn't have the money to get more?: Never true Within the past 12 months, did you worry whether your food would run out before you got money to buy more?: Never true Do you have trouble paying for medicines?: No Do you have trouble getting transportation to medical appointments?: No Do you have trouble paying your heating and electricity bill?: No Do you have trouble taking care of your child, family member or friend?: No Do you have trouble with day-to-day activities such as bathing, preparing meals, shopping, managing finances, etc.?: No Are you currently unemployed and looking for a job?: No Are you interested in more education?: No Please select the resources that you would like help with: None Currently or been in a relationship where the following occur: No concerns reported THRIVE Score: 0 CHAVO-7 AMB Questionnaire CHAVO-7 Date CHAVO - 7 assessed: 05/30/24 Feeling nervous, anxious, or on edge: 0 = Not at all Not being able to stop or control worryin = Not at all Worrying too much about different things: 0 = Not at all Trouble relaxin = Not at all Being so restless that it is hard to sit still: 0 = Not at all Becoming easily annoyed or irritable: 0 = Not at all Feeling afraid as if something awful might happen: 0 = Not at all Total CHAVO-7 score (0-4 normal; 5-9 mild; 10-14 moderate; 15-21 severe): 0 Source: Developed by Drs. Adams Cameron, Monica Cintron, Gerhard Hawkins and colleagues, with an educational yury from [employer]. Review of Systems Const All systems reviewed & are unremarkable except as noted in HPI and below Eyes Reports no additional complaints ENT Reports no additional complaints Card Reports no additional complaints Resp Reports no additional complaints GI Reports no additional complaints Reports no additional complaints Physical exam (Primary Care) Vital Signs: Last Vital Signs Temp 98.0 F 12/02/24 13:04 Pulse 60 12/02/24 13:04 Resp 18 12/02/24 13:04 BP 136/64 12/02/24 13:04 Pulse Ox 97 12/02/24 13:04 Oxygen Delivery Method Room Air 12/02/24 13:04 BMI result Body Mass Index 20.2 Tobacco/Smoking Status: Tobacco use Status Tobacco use date assessed 12/02/24 12/02/24 13:11 Patient Tobacco Use Status Current everyday Tobacco 12/02/24 12:50 Tobacco use type Cigarette 12/02/24 12:50 e-Cigarette/Vaping Use Former Use 12/02/24 12:50 PHQ-9: PHQ-9 Score PHQ-9: Total score 0 12/02/24 13:39 Depression Screening Interpretation: Negative Thrive Assessment: Date of Thrive Assessment Date Thrive assessed 05/30/24 12/02/24 12:50 Currently or been in a relationship where the following occur: No concerns reported Const General: no acute distress HENMT Head: Yes normal to inspection Throat: Yes posterior oropharynx normal Neck Neck: Yes supple Resp Effort & Inspection: normal respiratory effort Auscultation: diminished lung sounds Cardio Rhythm: regular rhythm Heart sounds: S1 normal heart sound present and S2 normal heart sound present GI Inspection: Yes normal to inspection Palpation (GI): Soft to palpation Percussion: Yes normal to percussion Auscultation: normal bowel sounds Extrem General: Yes no clubbing, cyanosis or edema Immunizations pneumoc 20-afua conj-dip cr(PF) 0.5 mL IM syringe Performing Provider: Jada Velasco MD Performing Location[place] [facility] Administered by: Naun Monreal CMA on 12/02/24 13:39 Dose Route Admin Location Dispensed Lot Number Expiration Date [employer] 0.5 mL IM Right Deltoid 0.5 mL [id number] 08/30/25 5648-2214-07 [employer]Scan Total Dispensed Waste 0.5 mL 0 % VIS Given Date VIS Provided VIS Publication Date 12/02/24 Single Vaccine 24 Eligibility Eligibility Date Funding Source Not [facility] Eligible 12/02/24 Private Coding Level of Care Code Est Pt Level 4 (55769) Diagnoses Hyperlipidemia E78.5 Type 2 diabetes mellitus E11.9 COPD (chronic obstructive pulmonary disease) J44.9 Smoker F17.200 Assessment & Plan Assessment & Plan (1) Hyperlipidemia: Code(s): E78.5 - Hyperlipidemia, unspecified Category: Medical Plan: cont statin (2) Type 2 diabetes mellitus: Code(s): E11.9 - Type 2 diabetes mellitus without complications Category: Medical Plan: A1C is 6.0, ADA diet, regular exercise, cont Metformin, f/u 6 months (3) COPD (chronic obstructive pulmonary disease): Code(s): J44.9 - Chronic obstructive pulmonary disease, unspecified Category: Medical Plan: cont Trelegy (4) Smoker: Comment: 1/2 PPD x 50 yrs, declined referral to lung cancer screening program Code(s): F17.200 - Nicotine dependence, unspecified, uncomplicated Category: Social Hx Plan: pt is quitting smoking Orders: Orders Comprehensive [place]. Panel Fast 6 Months E11.9 - Type 2 diabetes mellitus without complications, E78.5 - Hyperlipidemia, unspecified, J44.9 - Chronic obstructive pulmonary disease, unspecified Microalbumin, Random (w Creat) 6 Months E11.9 - Type 2 diabetes mellitus without complications, E78.5 - Hyperlipidemia, unspecified, J44.9 - Chronic obstructive pulmonary disease, unspecified Complete Blood Count Auto Diff 6 Months E11.9 - Type 2 diabetes mellitus without complications, E78.5 - Hyperlipidemia, unspecified, J44.9 - Chronic obstructive pulmonary disease, unspecified Hemoglobin A1c 6 Months E11.9 - Type 2 diabetes mellitus without complications, E78.5 - Hyperlipidemia, unspecified, J44.9 - Chronic obstructive pulmonary disease, unspecified Lipid Panel 6 Months E11.9 - Type 2 diabetes mellitus without complications, E78.5 - Hyperlipidemia, unspecified, J44.9 - Chronic obstructive pulmonary disease, unspecified Pneumococcal 20 Immunization Today Z23 - Encounter for immunization
[2024-12-02 13:04] VITALS: BP 136/64; PULSE 60; RESP 18; TEMP 36.7; O2SAT 97; BMI 20.2
== END 2024-12-02 13:50 | disposition home or self-care (01) ==
LOC: HO.HMCC 12:28
PROVIDERS: PCP Internal Medicine; Visit Provider Internal Medicine
DX: E78.5 Hyperlipidemia, unspecified (principal); E11.9 Type 2 diabetes mellitus without complications; J44.9 Chronic obstructive pulmonary disease, unspecified; F17.200 Nicotine dependence, unspecified, uncomplicated; Z23 Encounter for immunization

== ENCOUNTER → 2024-12-02 12:28 | Outpatient (BNVA) | payer BC, SELFPAY | PROVIDERS: PCP Internal Medicine; Visit Provider Internal Medicine | DX: E11.9 Type 2 diabetes mellitus without complications (principal); E78.5 Hyperlipidemia, unspecified; J44.9 Chronic obstructive pulmonary disease, unspecified; F17.210 Nicotine dependence, cigarettes, uncomplicated; Z23 Encounter for immunization | CPT/HCPCS: 90471; 90677; 96127 ==